=== PATIENT | female | born 1980 | race African-American/Black ===

== ENCOUNTER 2019-08-24 21:31 | Observation (INO) | payer OTHER, MEDICAID ==
[~2019-08-24] VITALS: Ht 160 cm; Wt 79.8 kg
[2019-08-24] MEDS ORDERED: PREN1TAB78 MT (22:09)
== END 2019-08-25 00:15 | disposition home or self-care (01) ==
LOC: 8 EST LDRP 21:31
PROVIDERS: ADMIT Obstetrics & Gynecology; ATTEND Obstetrics & Gynecology
DX: O36.8130 Decreased fetal movements, third trimester, not applicable or unspecified (principal); O26.893 Other specified pregnancy related conditions, third trimester; R10.9 Unspecified abdominal pain; O62.9 Abnormality of forces of labor, unspecified; Z3A.37 37 weeks gestation of pregnancy
CPT/HCPCS: 59025; 76815; 76818; 99281; G0378

== ENCOUNTER 2019-08-28 18:15 | Observation (INO) | payer OTHER, MEDICAID ==
[~2019-08-28] VITALS: Ht 160 cm; Wt 79.8 kg
[~2019-08-28 18:15] MED LIST: PREN1TAB78 MT
[2019-08-28] MEDS ORDERED: MVI, ADULT NO.1 10 ML in SODIUM CHLORIDE 0.9% 1,000 ML IV SCH ×2 (19:45)
== END 2019-08-28 21:20 | disposition home or self-care (01) ==
LOC: 8 EST LDRP 18:15
PROVIDERS: ADMIT Specialist; ATTEND Specialist
DX: O26.893 Other specified pregnancy related conditions, third trimester (principal); R19.7 Diarrhea, unspecified; O62.9 Abnormality of forces of labor, unspecified; Z3A.38 38 weeks gestation of pregnancy
CPT/HCPCS: 36415; 80051; 96365; 99281; G0378; J3490; J7030

== ENCOUNTER 2019-08-31 12:55 | Observation (INO) | payer OTHER, MEDICAID ==
[~2019-08-31] VITALS: Ht 160 cm; Wt 77.1 kg
== END 2019-08-31 15:00 | disposition home or self-care (01) ==
LOC: 8 EST LDRP 12:55
PROVIDERS: ADMIT Specialist; ATTEND Specialist
DX: O09.523 Supervision of elderly multigravida, third trimester (principal); Z3A.38 38 weeks gestation of pregnancy
CPT/HCPCS: 59025; 76815; 76818; 99281; G0378

== ENCOUNTER 2019-09-05 12:52 | Observation (INO) | payer OTHER, MEDICAID ==
[~2019-09-05] VITALS: Ht 165.1 cm; Wt 86.2 kg
== END 2019-09-05 14:40 | disposition home or self-care (01) ==
LOC: 8 EST LDRP 12:52
PROVIDERS: ADMIT Specialist; ATTEND Specialist
DX: O62.9 Abnormality of forces of labor, unspecified (principal); Z3A.39 39 weeks gestation of pregnancy
CPT/HCPCS: 59025; 76815; 76818; 99281; G0378